=== PATIENT | male | born 2000 | race African-American/Black ===

== ENCOUNTER 2020-09-03 00:30 | Emergency (ER) | payer MEDICAID ==
[~2020-09-03] VITALS: Ht 167.6 cm; Wt 66.0 kg
[2020-09-03] MEDS ORDERED: ONDANSETRON HCL 4MG/2ML INJ IV STA (01:12)
[2020-09-03] MEDS ORDERED: KETOROLAC 30MG/ML VIAL IV STA (01:12)
[2020-09-03] MEDS ORDERED: SODIUM CHLORIDE 0.9% 1,000 ML IV ONE (01:15)
[2020-09-03 01:27] LABS: BASOPHILS % 0.2 % (0.0-2.0); EOSINOPHILS % 0.3 % (0.0-5.0); HEMATOCRIT. 43.6 % (42.0-52.0); HEMOGLOBIN. 15.2 g/dL (14.0-18.0); LYMPHOCYTES % 10.3 % (20.0-50.0); MEAN CORPUSCULAR HEMOGLOBIN 30.1 pg (28.0-32.0); MEAN CORPUSCULAR VOLUME 86.7 fL (80.0-94.0); MEAN PLATELET VOLUME 7.6 fl (7.4-10.4); MONOCYTES % 7.9 % (2.0-8.0); NEUTROPHILS % 81.3 % (40.0-76.0); PLATELET 254 x1000/uL (130-400); RED BLOOD CELL COUNT 5.03 mill/uL (4.7-6.1); RED CELL DISTRIBUTION WIDTH 13.2 % (11.6-14.6)
[2020-09-03 01:34] LABS: CHLORIDE 107 mEq/L (98-107)
[2020-09-03 05:22] LABS: CLARITY URINE TURBID (CLEAR); COLOR URINE YELLOW (YELLOW); KETONES URINE NEGATIVE (NEGATIVE); LEUKOCYTE ESTERASE URINE 3+ (NEGATIVE); NITRITE URINE POSITIVE (NEGATIVE); OCCULT BLOOD URINE 1+ (NEGATIVE); PH URINE >=9.0 (4.5-8.0); PROTEIN URINE 2+ (NEGATIVE); SPECIFIC GRAVITY URINE 1.012 (1.005-1.030)
[2020-09-03] MEDS ORDERED: IBUP-2028 MT (05:42)
[2020-09-03] MEDS ORDERED: CEPH500T MT (05:42)
[2020-09-03 06:12] VITALS: BP 124/82
== END 2020-09-03 06:25 | disposition home or self-care (01) ==
LOC: ER 00:30
DX: N39.0 Urinary tract infection, site not specified (principal); J45.909 Unspecified asthma, uncomplicated; F84.0 Autistic disorder; Z98.890 Other specified postprocedural states; Z88.8 Allergy status to other drugs, medicaments and biological substances
CPT/HCPCS: 36415; 71045; 74176; 80053; 81003; 83690; 85025; 87077; 87086; 87186; 93005; 96361; 96374; 96375; 99285; J1885; J2405; J7030; Z7610

== ENCOUNTER 2020-10-19 13:52 | Emergency (ER) | payer MEDICAID ==
[~2020-10-19] VITALS: Ht 167.6 cm; Wt 67.0 kg
[~2020-10-19 13:52] MED LIST: CEPH500T MT; IBUP-2028 MT
[2020-10-19 14:07] VITALS: BP 134/86
[2020-10-19] MEDS ORDERED: NEOM10SO12 LEFT EAR (16:05)
[2020-10-19] MEDS ORDERED: AMOX-494 MT (16:05)
== END 2020-10-19 16:20 | disposition home or self-care (01) ==
LOC: ER 13:52
DX: H60.93 Unspecified otitis externa, bilateral (principal); J45.909 Unspecified asthma, uncomplicated; Z88.8 Allergy status to other drugs, medicaments and biological substances
CPT/HCPCS: 99283; Z7610

== ENCOUNTER 2021-10-15 14:12 | Emergency (ER) | payer MEDICAID ==
[~2021-10-15] VITALS: Ht 177.8 cm; Wt 82.0 kg
[~2021-10-15 14:12] MED LIST changes: +AMOX-494 MT; -CEPH500T MT; +NEOM10SO12 LEFT EAR
[2021-10-15] MEDS ORDERED: ACETAMINOPHEN 325MG TABLET PO NR (18:58)
[2021-10-15] MEDS ORDERED: OFLO5DRO4 EACH EAR (19:02)
[2021-10-15] MEDS ORDERED: IBUP-2028 PO (19:02)
[2021-10-15 22:15] VITALS: BP 119/86
== END 2021-10-15 22:17 | disposition home or self-care (01) ==
LOC: ER 14:12
DX: T16.1XXA Foreign body in right ear, initial encounter (principal); X58.XXXA Exposure to other specified factors, initial encounter; Y93.89 Activity, other specified; Y92.89 Other specified places as the place of occurrence of the external cause; Y99.8 Other external cause status
CPT/HCPCS: 99283